=== PATIENT | female | born 1950 | race Two or more races ===

== ENCOUNTER 2023-03-17 11:59 | Emergency (ER) | payer OTHER ==
[~2023-03-17] VITALS: Ht 147.3 cm; Wt 64.4 kg
== END 2023-03-17 15:51 | disposition home or self-care (01) ==
LOC: ER 11:59
DX: B34.9 Viral infection, unspecified (principal); K52.9 Noninfective gastroenteritis and colitis, unspecified; Z20.822 Contact with and (suspected) exposure to COVID-19
CPT/HCPCS: 36415; 71046; 96365; 96366; 99284; J7030

== ENCOUNTER 2025-02-08 14:04 | Inpatient (IN) | payer OTHER ==
[~2025-02-08] VITALS: Ht 175.3 cm; Wt 54.4 kg
[2025-02-08] MEDS ORDERED: TOPROL XL100 M1 PO (14:24)
[2025-02-08] MEDS ORDERED: TORADOL60 MG IM (14:25)
--- NOTE | 2025-02-08 14:25 | NUR ---
PTE. FEMENINA HX CA RINON LLEGA EN AMBULANCIA PRESENTANDO OPRESION EN PECHO QUE COMENZO ANTES DE TOVAR TERAPIA DE RADIO.
[2025-02-08] MEDS ORDERED: DILTIAZEM HCL 25 MG/5 ML VIAL IV ONE ×2 (16:45→16:57)
[2025-02-08] MEDS ORDERED: 0.9 % SODIUM CHLORIDE 1,000 ML IV ONE ×2 (16:45→21:15)
[2025-02-08] MEDS ORDERED: METOPROLOL TARTRATE 5MG/5ML AMPUL IV ONE ×4 (16:45→21:17)
[2025-02-08] MEDS ORDERED: MORPHINE SULFATE 2 MG/ML CARTRIDGE IV ONE (16:45)
[2025-02-08 18:05] LABS: BASO % 0.9 % (0.1-1.2); EOS # 0.04 (0.04-0.54); EOS % 1.9 % (0.7-7.0); LYMPH # 0.08 (1.18-3.74); LYMPH % 3.7 % (19.3-53.1); MEAN PLATELET VOLUME 11.00 fl (9.4-12.4); MONO # 0.23 (0.24-0.82); MONO % 10.6 % (4.7-12.5); NEUT # 1.75 (1.56-6.13); NEUT % 81.0 % (34.0-71.1); RED CELL DISTRIBUTION WIDTH 12.8 % (11.6-14.4)
[2025-02-08 18:32] LABS: ALT/SGPT 31.0 U/L (12-78); AST/SGOT 17.0 U/L (15-37); BILIRUBIN TOTAL 0.88 mg/dL (0.3-1.2); BUN CREA RATIO 35.0 (7.0-25.0); CREATININE SERUM 0.43 mg/dL (0.55-1.02); GFR 143.93; GLOBULINA 3.8 G/DL (2.4-3.5); GLUCOSE FASTING 143.0 mg/dL (65-100); OSMOLALITY SERUM 285.0 MOSM/KG (275-295)
[2025-02-08 18:34] LABS: INR 1.04
--- NOTE | 2025-02-08 19:29 | NUR ---
SE ORIENTA A PACIENTE SOBRE TX MEDICO Y LA MISMA REFIERE ENTENDER Y ACEPTAR DELIA. SE PROCEDE A ADMINISTRAR MEDICAMENTO STANTON ORDEN MEDICA BAJOP MEDIDAS ASEPTICAS.
[2025-02-08] MEDS ORDERED: MORPHINE SULFATE 4 MG/ML VIAL IV ONE (23:45)
[2025-02-09] VITALS (14 sets, daily range): BP systolic 122–170; BP diastolic 58–86; O2SAT 95–100
[2025-02-09] MEDS ORDERED: ENOXAPARIN SODIUM 40 MG/0.4 ML SYRINGE SUBCUTANEO SCH (00:28)
[2025-02-09] MEDS ORDERED: PIPERACILLIN/TAZOBACTAM SODIUM 3.375 GM in DEXTROSE 5 % IN WATER 100 ML IV SCH (00:28)
[2025-02-09] MEDS ORDERED: DILTIAZEM HCL 125 MG in 0.9 % SODIUM CHLORIDE 100 ML IV SCH (00:30)
[2025-02-09] MEDS ORDERED: ACETAMINOPHEN 500 MG GEL..CAP PO PRN (00:30)
[2025-02-09] MEDS ORDERED: 0.9 % SODIUM CHLORIDE 1,000 ML IV SCH (00:30)
[2025-02-09] MEDS ORDERED: INSULIN LISPRO 1,000 UNIT/10 ML UNITS SUBCUTANEO PRN (00:45)
[2025-02-09] MEDS ORDERED: MORPHINE SULFATE 2 MG/ML CARTRIDGE IV PRN (00:45)
[2025-02-09] MEDS ORDERED: DEXTROSE 50 % IN WATER 0.5 G/ML VIAL IV PRN (00:45)
[2025-02-09] MEDS ORDERED: ENOXAPARIN SODIUM 40 MG/0.4 ML SYRINGE SUBCUTANEO ONE (00:46)
[2025-02-09 03:03] LABS: INR 1.06
[2025-02-09] MEDS ORDERED: METOPROLOL SUCCINATE 50 MG TAB.SR.24H PO SCH (14:21)
[2025-02-09] MEDS ORDERED: SODIUM CHLORIDE 0.45 % 1,000 ML IV SCH (14:30)
[2025-02-09] MEDS ORDERED: PANTOPRAZOLE SODIUM 40 MG/VIAL VIAL IV PUSH SCH (17:00)
[2025-02-09] MEDS ORDERED: PIPERACILLIN/TAZOBACTAM SODIUM 3.375 GM VIAL IV ONE (18:07)
[2025-02-09 20:41] LABS: URINE APPEARANCE Clear; URINE BILIRRUBIN Negative (NEGATIVE); URINE BLOOD Negative; URINE COLOR Yellow; URINE LEUKOCYTE Negative; URINE NITRATE Negative; URINE PROTEIN Negative (NEGATIVE); URINE UROBILINOGEN 1.0 E.U./dl
[2025-02-09 20:45] LABS: URINE BACTERIA 8.5 uL (0.0-1933); URINE EPITHELIAL CELLS 7.5 uL (0.0-38.8); URINE RBC 2.9 uL (0.0-20.8); URINE WBC 2.0 uL (0.0-23.2)
[2025-02-09 20:54] LABS: URINE CAST 0.29 uL (0.0-1.40); URINE GLUCOSE >=1000 MG/DL (NEGATIVE); URINE KETONE 80 (NEGATIVE)
[2025-02-09 20:58] LABS: TYPE CELLS SQUAMOUS
[2025-02-09] MEDS ORDERED: CLONAZEPAM 0.5 MG TABLET PO SCH (21:00)
[2025-02-09] MEDS ORDERED: METOPROLOL TARTRATE 5MG/5ML AMPUL IV ONE (23:04)
[2025-02-09] MEDS ORDERED: METOPROLOL TARTRATE 5MG/5ML AMPUL IV STA (23:21)
[2025-02-10] VITALS (10 sets, daily range): BP systolic 116–172; BP diastolic 56–88; O2SAT 95–98
[2025-02-10] MEDS ORDERED: DILTIAZEM HCL 125 MG in 0.9 % SODIUM CHLORIDE 100 ML IV SCH (00:30)
[2025-02-10 08:51] LABS: ABG PH 7.397 (7.35-7.45); ABG PO2 76.7 mmHg (80-100); BICARBONATE 16.8 mmol/l (23-25); o2 21 %
[2025-02-10] MEDS ORDERED: ATORVASTATIN CALCIUM 20 MG TABLET PO SCH (09:00)
[2025-02-10] MEDS ORDERED: LOSARTAN POTASSIUM 50 MG TABLET PO SCH (09:00)
[2025-02-10] MEDS ORDERED: ENOXAPARIN SODIUM 40 MG/0.4 ML SYRINGE SUBCUTANEO SCH (09:00)
[2025-02-10] MEDS ORDERED: METOPROLOL SUCCINATE 50 MG TAB.SR.24H PO NR (13:15)
[2025-02-10] MEDS ORDERED: ENOXAPARIN SODIUM 60 MG/0.6 ML SYRINGE SUBCUTANEO SCH (21:00)
[2025-02-10] MEDS ORDERED: MORPHINE SULFATE 2 MG/ML CARTRIDGE IV PRN (22:01)
[2025-02-11 04:00] VITALS: BP 126/72; O2SAT 98
[2025-02-11 07:19] VITALS: BP 146/85; O2SAT 100
[2025-02-11] MEDS ORDERED: ENOXAPARIN SODIUM 60 MG/0.6 ML SYRINGE SUBCUTANEO SCH (09:00)
[2025-02-11] MEDS ORDERED: ENOXAPARIN SODIUM 40 MG/0.4 ML SYRINGE SUBCUTANEO SCH (09:00)
[2025-02-11] MEDS ORDERED: MORPHINE SULFATE 4 MG/ML CARTRIDGE IV PRN (09:00)
[2025-02-11] MEDS ORDERED: METOPROLOL SUCCINATE 100 MG TAB.SR.24H PO SCH (09:00)
[2025-02-11 12:18] VITALS: BP 128/82; O2SAT 97
[2025-02-11 15:52] VITALS: BP 151/82; O2SAT 95
[2025-02-11 20:00] VITALS: BP 156/84; O2SAT 98
[2025-02-11 23:16] VITALS: BP 151/67; O2SAT 98
[2025-02-12 04:04] VITALS: BP 117/65; O2SAT 95
[2025-02-12 07:24] VITALS: BP 156/82; O2SAT 97
[2025-02-12 12:45] VITALS: BP 147/77; O2SAT 96
[2025-02-12] MEDS ORDERED: BISACODYL 10 MG/SUPP.RECT SUPP.RECT RECTAL NR (14:10)
[2025-02-12 15:23] VITALS: BP 128/66; BP 147/77; O2SAT 93
[2025-02-12 20:00] VITALS: BP 162/72; O2SAT 91
[2025-02-12 23:38] VITALS: BP 147/81; O2SAT 97
[2025-02-13 03:59] VITALS: BP 137/71; O2SAT 94
[2025-02-13 07:24] VITALS: BP 117/54; O2SAT 100
[2025-02-13 08:18] LABS: BASO % 0.5 % (0.1-1.2); EOS # 0.02 (0.04-0.54); EOS % 1.0 % (0.7-7.0); LYMPH # 0.15 (1.18-3.74); LYMPH % 7.5 % (19.3-53.1); MEAN PLATELET VOLUME 11.10 fl (9.4-12.4); MONO # 0.17 (0.24-0.82); MONO % 8.5 % (4.7-12.5); NEUT # 1.62 (1.56-6.13); NEUT % 81.5 % (34.0-71.1); RED CELL DISTRIBUTION WIDTH 13.2 % (11.6-14.4)
[2025-02-13 08:23] LABS: BUN CREA RATIO 28.0 (7.0-25.0); GFR 269.13; GLUCOSE FASTING 144.0 mg/dL (65-100); OSMOLALITY SERUM 280.0 MOSM/KG (275-295)
[2025-02-13 08:46] LABS: CREATININE SERUM 0.25 mg/dL (0.55-1.02)
[2025-02-13 12:00] VITALS: BP 122/71; O2SAT 97
[2025-02-13] MEDS ORDERED: MORPHINE SULFATE 2 MG/ML CARTRIDGE IV PRN ×2 (12:00)
[2025-02-13] MEDS ORDERED: MORPHINE SULFATE 4 MG/ML CARTRIDGE IV PRN (15:00)
[2025-02-13 15:53] VITALS: BP 139/71; O2SAT 97
[2025-02-13 20:46] VITALS: BP 112/65; O2SAT 98
[2025-02-13 23:17] VITALS: BP 139/77; O2SAT 97
[2025-02-14] VITALS (8 sets, daily range): BP systolic 122–143; BP diastolic 63–778; O2SAT 95–100
[2025-02-14 10:08] LABS: BASO % 0.5 % (0.1-1.2); EOS # 0.03 (0.04-0.54); EOS % 1.4 % (0.7-7.0); LYMPH # 0.11 (1.18-3.74); LYMPH % 5.2 % (19.3-53.1); MEAN PLATELET VOLUME 10.10 fl (9.4-12.4); MONO # 0.17 (0.24-0.82); MONO % 8.0 % (4.7-12.5); NEUT # 1.79 (1.56-6.13); NEUT % 84.0 % (34.0-71.1); RED CELL DISTRIBUTION WIDTH 13.2 % (11.6-14.4)
[2025-02-14 10:19] LABS: INR 1.05
[2025-02-14 10:38] LABS: ALT/SGPT 45.0 U/L (12-78); AST/SGOT 32.0 U/L (15-37); BILIRUBIN TOTAL 0.69 mg/dL (0.3-1.2); BUN CREA RATIO 17.0 (7.0-25.0); CREATININE SERUM 0.41 mg/dL (0.55-1.02); GFR 152.06; GLOBULINA 3.5 G/DL (2.4-3.5); GLUCOSE FASTING 128.0 mg/dL (65-100); OSMOLALITY SERUM 279.0 MOSM/KG (275-295)
[2025-02-14] MEDS ORDERED: METOPROLOL TARTRATE 50 MG TABLET PO SCH (13:00)
[2025-02-14] MEDS ORDERED: MAGNESIUM SULFATE/D5W 1GM/100ML PIGGYBAG IV NR (13:15)
[2025-02-14] MEDS ORDERED: POTASSIUM CHLORIDE IN WATER 40 MEQ/100 ML PIGGYBAG IV NR (13:15)
[2025-02-14] MEDS ORDERED: 0.9 % SODIUM CHLORIDE 1,000 ML IV SCH (13:30)
[2025-02-14 15:13] LABS: ABG PH 7.466 (7.35-7.45); ABG PO2 156.5 mmHg (80-100); BICARBONATE 24.7 mmol/l (23-25)
[2025-02-14 15:14] LABS: o2 32 %
[2025-02-14] MEDS ORDERED: CLONAZEPAM 0.5 MG TABLET PO SCH (17:00)
[2025-02-14] MEDS ORDERED: PANTOPRAZOLE SODIUM 40 MG TABLET.DR PO SCH (21:00)
[2025-02-15] VITALS (9 sets, daily range): BP systolic 130–145; BP diastolic 67–76; O2SAT 92–99
[2025-02-15] MEDS ORDERED: LOSARTAN POTASSIUM 100 MG TABLET PO SCH (09:00)
[2025-02-15 15:12] LABS: quan ag 0.30 IU/mL (.); quan ag 0.33 IU/mL (.); quan mito 2.88 IU/mL (.); quant nil 0.33 IU/mL (.)
[2025-02-16] VITALS (8 sets, daily range): BP systolic 125–151; BP diastolic 77–78; O2SAT 73–97
[2025-02-16] MEDS ORDERED: MORPHINE SULFATE 4 MG/ML CARTRIDGE IV PRN (05:00)
[2025-02-16 11:55] LABS: BASO % 0.4 % (0.1-1.2); EOS # 0.03 (0.04-0.54); EOS % 1.1 % (0.7-7.0); LYMPH # 0.21 (1.18-3.74); LYMPH % 8.0 % (19.3-53.1); MEAN PLATELET VOLUME 10.20 fl (9.4-12.4); MONO # 0.17 (0.24-0.82); MONO % 6.5 % (4.7-12.5); NEUT # 2.18 (1.56-6.13); NEUT % 83.2 % (34.0-71.1); RED CELL DISTRIBUTION WIDTH 13.2 % (11.6-14.4)
[2025-02-16 12:23] LABS: INR 1.16
[2025-02-16 13:24] LABS: ALT/SGPT 29.0 U/L (12-78); AST/SGOT 23.0 U/L (15-37); BILIRUBIN TOTAL 0.61 mg/dL (0.3-1.2); BUN CREA RATIO 14.0 (7.0-25.0); CREATININE SERUM 0.35 mg/dL (0.55-1.02); GFR 182.53; GLOBULINA 3.2 G/DL (2.4-3.5); GLUCOSE FASTING 178.0 mg/dL (65-100); OSMOLALITY SERUM 289.0 MOSM/KG (275-295)
[2025-02-16] MEDS ORDERED: MAGNESIUM SULFATE 50% 1,000 MG/2 ML VIAL IM NR (19:00)
[2025-02-16] MEDS ORDERED: POTASSIUM CHLORIDE IN WATER 40 MEQ/100 ML PIGGYBAG IV NR (19:00)
[2025-02-16] MEDS ORDERED: SOD FERRIC GLUC COMPLX/SUCROSE 125 MG in 0.9 % SODIUM CHLORIDE 100 ML IV SCH (21:00)
[2025-02-16 21:35] LABS: ob NEGATIVE (NEGATIVE)
[2025-02-16 21:49] LABS: FE 94.0 ug/dl (50-170)
[2025-02-17] VITALS (9 sets, daily range): BP systolic 140–160; BP diastolic 77–84; O2SAT 90–99
[2025-02-17 10:02] LABS: FOLIC ACID 12.69 ng/ml (4.78-20)
[2025-02-18] VITALS (8 sets, daily range): BP systolic 140–157; BP diastolic 63–80; O2SAT 90–100
[2025-02-18 05:51] LABS: BASO % 0.7 % (0.1-1.2); EOS # 0.09 (0.04-0.54); EOS % 3.2 % (0.7-7.0); LYMPH # 0.26 (1.18-3.74); LYMPH % 9.1 % (19.3-53.1); MEAN PLATELET VOLUME 10.50 fl (9.4-12.4); MONO # 0.28 (0.24-0.82); MONO % 9.8 % (4.7-12.5); NEUT # 2.17 (1.56-6.13); NEUT % 76.1 % (34.0-71.1); RED CELL DISTRIBUTION WIDTH 13.5 % (11.6-14.4)
[2025-02-18 06:33] LABS: BUN CREA RATIO 13.0 (7.0-25.0); CREATININE SERUM 0.31 mg/dL (0.55-1.02); GFR 209.97; GLUCOSE FASTING 137.0 mg/dL (65-100); OSMOLALITY SERUM 284.0 MOSM/KG (275-295)
[2025-02-18] MEDS ORDERED: FAMOTIDINE/PF 20 MG/2 ML VIAL IV PUSH STA (15:59)
[2025-02-18] MEDS ORDERED: MORPHINE SULFATE 4 MG/ML CARTRIDGE IV PRN (16:45)
[2025-02-18 19:55] LABS: ABG PH 7.496 (7.35-7.45); ABG PO2 44.9 mmHg (80-100); BICARBONATE 24.0 mmol/l (23-25)
[2025-02-18 19:56] LABS: o2 21 %
[2025-02-18] MEDS ORDERED: FAMOTIDINE/PF 20 MG/2 ML VIAL IV PUSH SCH (21:00)
[2025-02-19] VITALS (8 sets, daily range): BP systolic 138–158; BP diastolic 80–84; O2SAT 90–100
[2025-02-19] MEDS ORDERED: PANTOPRAZOLE SODIUM 40 MG in 0.9 % SODIUM CHLORIDE 8 ML IV PUSH SCH (09:00)
[2025-02-20] VITALS (9 sets, daily range): BP systolic 127–145; BP diastolic 76–78; O2SAT 90–100
[2025-02-20] MEDS ORDERED: ACETAMINOPHEN 500 MG GEL..CAP PO PRN (11:45)
[2025-02-20] MEDS ORDERED: PIPERACILLIN/TAZOBACTAM SODIUM 3.375 GM in DEXTROSE 5 % IN WATER 100 ML IV SCH (12:00)
[2025-02-20] MEDS ORDERED: levoFLOXacin IN DEXTROSE 5 % 150 ML IV SCH (13:49)
[2025-02-20 15:45] LABS: BASO % 0.3 % (0.1-1.2); EOS # 0.16 (0.04-0.54); EOS % 4.9 % (0.7-7.0); LYMPH # 0.26 (1.18-3.74); LYMPH % 8.0 % (19.3-53.1); MEAN PLATELET VOLUME 10.40 fl (9.4-12.4); MONO # 0.23 (0.24-0.82); MONO % 7.1 % (4.7-12.5); NEUT # 2.54 (1.56-6.13); NEUT % 78.5 % (34.0-71.1); RED CELL DISTRIBUTION WIDTH 13.7 % (11.6-14.4)
[2025-02-20 15:58] LABS: BILIRUBIN TOTAL 0.68 mg/dL (0.3-1.2); BILIRUBIN,CONJUGATED 0.25 mg/dL (0.0-0.2)
[2025-02-20 15:59] LABS: ALT/SGPT 19.0 U/L (12-78); AST/SGOT 23.0 U/L (15-37); BILIRUBIN TOTAL 0.69 mg/dL (0.3-1.2); BUN CREA RATIO 20.0 (7.0-25.0); CREATININE SERUM 0.44 mg/dL (0.55-1.02); GFR 140.16; GLOBULINA 3.7 G/DL (2.4-3.5); GLUCOSE FASTING 184.0 mg/dL (65-100); LDH 524.0 U/L (84-246); OSMOLALITY SERUM 287.0 MOSM/KG (275-295)
[2025-02-20 16:05] LABS: COVID-19 AG POSITIVE (NEGATIVE)
[2025-02-20 16:14] LABS: ERYTHROCYTE SEDIMENTATION RATE 82 mm/hr (0-30)
[2025-02-20] MEDS ORDERED: DEXAMETHASONE SODIUM PHOSPHATE 4 MG/ML VIAL IV SCH (17:20)
[2025-02-20] MEDS ORDERED: REMDESIVIR 100 MG VIAL IV ONE (17:30)
[2025-02-21] VITALS (10 sets, daily range): BP systolic 99–136; BP diastolic 60–78; O2SAT 86–100
[2025-02-21 12:50] LABS: BASO % 0.0 % (0.1-1.2); EOS # 0.00 (0.04-0.54); EOS % 0.0 % (0.7-7.0); LYMPH # 0.17 (1.18-3.74); LYMPH % 4.0 % (19.3-53.1); MEAN PLATELET VOLUME 10.20 fl (9.4-12.4); MONO # 0.21 (0.24-0.82); MONO % 5.0 % (4.7-12.5); NEUT # 3.82 (1.56-6.13); NEUT % 90.5 % (34.0-71.1); RED CELL DISTRIBUTION WIDTH 13.6 % (11.6-14.4)
[2025-02-21] MEDS ORDERED: REMDESIVIR 100 MG VIAL IV SCH (17:00)
[2025-02-21 21:10] LABS: LDH 292.0 U/L (84-246)
[2025-02-22] VITALS (8 sets, daily range): BP systolic 122–134; BP diastolic 75–77; O2SAT 88–99
[2025-02-23] VITALS (8 sets, daily range): BP systolic 120–157; BP diastolic 69–80; O2SAT 90–99
[2025-02-23] MEDS ORDERED: KETOROLAC TROMETHAMINE 30 MG VIAL IV STA (13:37)
[2025-02-23 16:34] LABS: ABG PH 7.468 (7.35-7.45); ABG PO2 96.6 mmHg (80-100); BICARBONATE 25.3 mmol/l (23-25)
[2025-02-23 20:18] LABS: o2 50 %
[2025-02-23] MEDS ORDERED: CLONAZEPAM 0.5 MG TABLET PO SCH (21:00)
[2025-02-24] VITALS (9 sets, daily range): BP systolic 129–150; BP diastolic 70–79; O2SAT 90–98
[2025-02-25] VITALS (8 sets, daily range): BP systolic 121–167; BP diastolic 71–84; O2SAT 94–99
[2025-02-25] MEDS ORDERED: TRAMADOL HCL 50 MG TABLET PO PRN (12:00)
[2025-02-25] MEDS ORDERED: KETOROLAC TROMETHAMINE 30 MG VIAL IM PRN (20:00)
[2025-02-26 00:32] VITALS: O2SAT 97
[2025-02-26 02:39] VITALS: BP 125/73; O2SAT 97
[2025-02-26 05:40] VITALS: O2SAT 99
[2025-02-26 08:24] VITALS: O2SAT 98
[2025-02-26 09:02] LABS: BASO % 0.3 % (0.1-1.2); EOS # 0.13 (0.04-0.54); EOS % 4.0 % (0.7-7.0); LYMPH # 0.25 (1.18-3.74); LYMPH % 7.6 % (19.3-53.1); MEAN PLATELET VOLUME 10.20 fl (9.4-12.4); MONO # 0.33 (0.24-0.82); MONO % 10.1 % (4.7-12.5); NEUT # 2.51 (1.56-6.13); NEUT % 76.8 % (34.0-71.1); RED CELL DISTRIBUTION WIDTH 14.8 % (11.6-14.4)
[2025-02-26 09:39] VITALS: BP 154/80; O2SAT 96
[2025-02-26 09:50] LABS: ALT/SGPT 18.0 U/L (12-78); AST/SGOT 19.0 U/L (15-37); BILIRUBIN TOTAL 0.7 mg/dL (0.3-1.2); BUN CREA RATIO 24.0 (7.0-25.0); CREATININE SERUM 0.46 mg/dL (0.55-1.02); GFR 133.15; GLOBULINA 3.3 G/DL (2.4-3.5); GLUCOSE FASTING 101.0 mg/dL (65-100); OSMOLALITY SERUM 285.0 MOSM/KG (275-295)
== END 2025-02-26 22:59 | disposition left against medical advice (07) | DRG 308 ==
LOC: ER 14:04 → ICU-2 02-09 00:33 → ICU 02-10 02:50 → MEDI 02-14 19:48 → MEDJ 02-20 17:21
PROVIDERS: General Practice; Internal Medicine; Internal Medicine Infectious Disease; Student in an Organized Health Care Education/Training Program; ADMIT Internal Medicine; ATTEND Internal Medicine
PROC: BW24ZZZ Computerized Tomography (CT Scan) of Chest and Abdomen (ICD-10-PCS; 2025-02-08)
PROC: B24BYZZ Ultrasonography of Heart with Aorta using Other Contrast (ICD-10-PCS; 2025-02-09)
PROC: BW24YZZ Computerized Tomography (CT Scan) of Chest and Abdomen using Other Contrast (ICD-10-PCS; 2025-02-10)
PROC: 4A12X4Z Monitoring of Cardiac Electrical Activity, External Approach (ICD-10-PCS; 2025-02-14)
PROC: XW033E5 Introduction of Remdesivir Anti-infective into Peripheral Vein, Percutaneous Approach, New Technology Group 5 (ICD-10-PCS; principal; 2025-02-20)
PROC: 8E0ZXY6 Isolation (ICD-10-PCS; 2025-02-20)
PROC: BW24ZZZ Computerized Tomography (CT Scan) of Chest and Abdomen (ICD-10-PCS; 2025-02-20)
DX: I48.92 Unspecified atrial flutter (principal); A41.9 Sepsis, unspecified organism; U07.1 COVID-19; J18.9 Pneumonia, unspecified organism; C64.9 Malignant neoplasm of unspecified kidney, except renal pelvis; J81.1 Chronic pulmonary edema; J90 Pleural effusion, not elsewhere classified; C79.9 Secondary malignant neoplasm of unspecified site; I10 Essential (primary) hypertension; D72.819 Decreased white blood cell count, unspecified; D64.9 Anemia, unspecified; D69.6 Thrombocytopenia, unspecified; R09.02 Hypoxemia; R06.03 Acute respiratory distress; E11.9 Type 2 diabetes mellitus without complications; Z79.4 Long term (current) use of insulin; R59.0 Localized enlarged lymph nodes; Z53.29 Procedure and treatment not carried out because of patient's decision for other reasons